=== PATIENT | female | born 1955 | race Caucasian/White ===

== ENCOUNTER → 2017-04-09 | Outpatient (CLI) | payer OTHER ==
[~2017-04-09] MED LIST: ASPI325T6 PO; CLEOCIN HC150 MG/CAP PO; COREG 6.256.25 MG/TA PO; HIGH BLOOD PRESSURE; HUMULIN N 10100 U/ML SQ; HUMULIN R U-500 U/ML SQ; IPRATROPIUM BROM3 M1 IH; K-DUR 10 MEQ T10 MEQ PO; LASIX 20MG TABL20 MG; LASIX 20MG TABL20 MG PO; LASIX 40MG TABL40 MG PO; NORVASC 5MG5 MG/TAB PO; PREDNISONE20 MG PO; VASOTEC20 MG PO
== END ==
LOC: SUN.DIA 08:40
DX: E11.9 Type 2 diabetes mellitus without complications (principal); Z79.4 Long term (current) use of insulin; I51.9 Heart disease, unspecified; E66.9 Obesity, unspecified; Z68.34 Body mass index [BMI] 34.0-34.9, adult; Z71.3 Dietary counseling and surveillance; F17.210 Nicotine dependence, cigarettes, uncomplicated
CPT/HCPCS: G0108

== ENCOUNTER 2017-09-01 20:40 | Inpatient (IN) | payer OTHER ==
[~2017-09-01] VITALS: Ht 160 cm; Wt 90.0 kg
[~2017-09-01 20:40] MED LIST changes: +ASPIRIN 81M81 MG/TA2 PO; +HUMULIN R 10100 U/ML SQ; +NICODERM C21 MG/PATC TD
[2017-09-01 21:12] LABS: BASO % 0.2 % (0.0-2.0); EOS # 0.1 (0.0-0.7); EOS % 2.6 % (0-4.0); GRAN # 3.2 (1.4-6.5); GRAN % 64.6 % (42.2-75.2); HEMATOCRIT 38.7 % (37.0-47.0); HEMOGLOBIN 12.5 g/dl (12.5-16.0); LYMPH # 1.2 (1.2-3.4); MEAN CELL VOLUME 102 fl (80.0-100.0); MEAN CORPUSCULAR HEMOGLOBIN 33 pg (27.0-31.0); MEAN CORPUSCULAR HGB CONC 32 g/dl (33.0-37.0); MEAN PLATELET VOLUME 10.6 fl (7.4-10.4); MONO # 0.4 (0.1-0.6); MONO % 8.4 % (1.7-9.3); PLATELET COUNT 143 K/mm3 (130-400); RED BLOOD COUNT 3.79 M/mm3 (4.10-5.30); REDCELL DISTRIBUTION WIDTH-CV 12.7 % (11.5-14.5)
[2017-09-01 21:28] LABS: ALANINE AMINOTRANSFERASE 74 U/L (9-52); ALBUMIN 3.2 gm/dL (3.5-5.0); ALKALINE PHOSPHATASE 87 U/L (50-136); ANION GAP 6 mmol/L (7-16); AST,SGOT 63 U/L (15-37); BILIRUBIN,TOTAL 0.3 mg/dL (0.0-1.0); BLOOD UREA NITROGEN 23 mg/dL (7-17); CALCIUM 8.6 mg/dL (8.4-10.2); CARBON DIOXIDE 35 mmol/L (22-30); CHLORIDE 101 mmol/L (98-107); CREATININE, serum 0.98 mg/dL (0.52-1.25); GLUCOSE 145 mg/dL (74-106); POTASSIUM 4.4 mmol/L (3.4-5.0); SODIUM 143 mmol/L (137-145); TOTAL PROTEIN 6.1 gm/dL (6.4-8.2)
[2017-09-01 21:40] LABS: TROPONIN-I < 0.012 ng/mL (0.000-0.034)
[2017-09-01 21:41] LABS: ARTERIAL BLD GAS O2 SATURATION 93.2 % (92-100); ARTERIAL BLD GAS TCO2 CT 40.5; ARTERIAL BLOOD GAS BASE EXCESS 7.9 (-2-2); ARTERIAL BLOOD GAS HCO3 37.9 meq/L (22-26); ARTERIAL BLOOD GAS PO2 72.3 mmHg (80-100); ARTERIAL BLOOD GAS pH 7.27 (7.35-7.45)
[2017-09-01 21:42] LABS: ARTERIAL BLOOD GAS PCO2 83.8 mmHg (35-45)
[2017-09-01 22:40] LABS: COLLECTION METHOD CLEAN CATCH
[2017-09-01 22:47] LABS: MUCOUS Present /lpf; PH 5 (5-8); SQUAMOUS EPITHELIAL 0-2 /hpf; URINE APPEARANCE Clear; URINE BACTERIA Rare /hpf; URINE BILIRUBIN Negative (NEGATIVE); URINE BLOOD Negative (NEGATIVE); URINE COLOR Yellow; URINE GLUCOSE Negative (NEGATIVE); URINE KETONE Negative (NEGATIVE); URINE LEUKOCYTE ESTERASE Negative (NEGATIVE); URINE NITRATE Negative (NEGATIVE); URINE PROTEIN(semi-quant) Negative (NEGATIVE); URINE RBC 0-2 /hpf; URINE UROBILINOGEN Negative (NEGATIVE)
[2017-09-01 23:54] VITALS: O2SAT 100
[2017-09-01 23:55] VITALS: O2SAT 96
[2017-09-01 23:56] VITALS: O2SAT 98
[2017-09-01 23:57] VITALS: O2SAT 97
[2017-09-01 23:58] VITALS: O2SAT 100
[2017-09-01 23:59] VITALS: O2SAT 99
[2017-09-02] VITALS (1377 sets, daily range): BP systolic 117–214; BP diastolic 66–102; PULSE 57–86; TEMP 97.3–97.9; O2SAT 78–99
[2017-09-02 02:26] LABS: ARTERIAL BLD GAS O2 SATURATION 94.8 % (92-100); ARTERIAL BLD GAS TCO2 CT 38.6; ARTERIAL BLOOD GAS BASE EXCESS 7.5 (-2-2); ARTERIAL BLOOD GAS HCO3 36.4 meq/L (22-26); ARTERIAL BLOOD GAS PO2 83.2 mmHg (80-100); ARTERIAL BLOOD GAS pH 7.31 (7.35-7.45)
[2017-09-02 02:27] LABS: ARTERIAL BLOOD GAS PCO2 73.2 mmHg (35-45)
[2017-09-02 05:52] LABS: BASO % 0.2 % (0.0-2.0); EOS # 0.1 (0.0-0.7); EOS % 1.1 % (0-4.0); GRAN # 5.5 (1.4-6.5); GRAN % 84.3 % (42.2-75.2); HEMOGLOBIN 13.2 g/dl (12.5-16.0); LYMPH # 0.7 (1.2-3.4); LYMPH % 11.1 % (20.0-51.0); MEAN CELL VOLUME 104 fl (80.0-100.0); MEAN CORPUSCULAR HEMOGLOBIN 33 pg (27.0-31.0); MEAN CORPUSCULAR HGB CONC 32 g/dl (33.0-37.0); MEAN PLATELET VOLUME 10.8 fl (7.4-10.4); MONO # 0.2 (0.1-0.6); PLATELET COUNT 161 K/mm3 (130-400); RED BLOOD COUNT 3.95 M/mm3 (4.10-5.30); REDCELL DISTRIBUTION WIDTH-CV 12.6 % (11.5-14.5)
[2017-09-02 06:05] LABS: ALBUMIN 3.6 gm/dL (3.5-5.0); BILIRUBIN,TOTAL 0.6 mg/dL (0.0-1.0); CALCIUM 8.7 mg/dL (8.4-10.2); CREATININE, serum 0.85 mg/dL (0.52-1.25); POTASSIUM 4.1 mmol/L (3.4-5.0); TOTAL PROTEIN 6.6 gm/dL (6.4-8.2)
[2017-09-02 13:24] LABS: ARTERIAL BLOOD GAS pH 7.35 (7.35-7.45)
[2017-09-02 13:25] LABS: ARTERIAL BLOOD GAS BASE EXCESS 12.7 (-2-2); ARTERIAL BLOOD GAS HCO3 42.3 meq/L (22-26); ARTERIAL BLOOD GAS PCO2 79.2 mmHg (35-45); ARTERIAL BLOOD GAS PO2 76.5 mmHg (80-100)
[2017-09-02 13:26] LABS: ARTERIAL BLD GAS TCO2 CT 44.7
[2017-09-02 13:29] LABS: ARTERIAL BLOOD GAS BASE EXCESS 10.1 (-2-2); ARTERIAL BLOOD GAS HCO3 39.3 meq/L (22-26); ARTERIAL BLOOD GAS PCO2 75.8 mmHg (35-45); ARTERIAL BLOOD GAS PO2 89.7 mmHg (80-100)
[2017-09-02 13:30] LABS: ARTERIAL BLD GAS O2 SATURATION 96.1 % (92-100); ARTERIAL BLOOD GAS pH 7.33 (7.35-7.45)
[2017-09-02 14:17] LABS: ARTERIAL BLOOD GAS BASE EXCESS 11.9 (-2-2); ARTERIAL BLOOD GAS HCO3 40.9 meq/L (22-26); ARTERIAL BLOOD GAS PCO2 75.3 mmHg (35-45); ARTERIAL BLOOD GAS PO2 66.4 mmHg (80-100); ARTERIAL BLOOD GAS pH 7.35 (7.35-7.45)
[2017-09-02 14:18] LABS: ARTERIAL BLD GAS O2 SATURATION 92.6 % (92-100)
[2017-09-03] VITALS (708 sets, daily range): BP systolic 129–158; BP diastolic 47–84; PULSE 58–83; TEMP 97–98.8; O2SAT 82–98
[2017-09-04 04:25] VITALS: BP 170/72; PULSE 71
[2017-09-04 08:04] VITALS: BP 169/72; PULSE 69; TEMP 98.7
[2017-09-04 12:13] VITALS: BP 167/78; PULSE 71; TEMP 98.6
[2017-09-04] MEDS ORDERED: VASOTEC20 MG PO (13:45)
[2017-09-04] MEDS ORDERED: LASIX 20MG TABL20 MG PO (13:45)
[2017-09-04] MEDS ORDERED: HUMULIN N 10100 U/ML SQ (13:45)
[2017-09-04] MEDS ORDERED: COREG 6.256.25 MG/TA PO (13:45)
[2017-09-04] MEDS ORDERED: PREDNISONE20 MG PO (13:45)
[2017-09-04] MEDS ORDERED: NICODERM C21 MG/PATC TD (13:45)
[2017-09-04] MEDS ORDERED: HUMULIN R 10100 U/ML SQ (13:45)
[2017-09-04] MEDS ORDERED: IPRATROPIUM BROM3 M1 IH (13:45)
[2017-09-04] MEDS ORDERED: NOVOLIN R100 U/ML SQ (14:42)
[2017-09-04] MEDS ORDERED: NOVOLIN N100 U/ML SQ (14:42)
== END 2017-09-04 15:37 | disposition home or self-care (01) | DRG 189 ==
LOC: COL.ER 20:40 → ICU 22:10 → MEDICAL 09-03 11:57
PROVIDERS: Emergency Medicine; Internal Medicine Pulmonary Disease
DX: J96.02 Acute respiratory failure with hypercapnia (principal); I50.33 Acute on chronic diastolic (congestive) heart failure; J44.1 Chronic obstructive pulmonary disease with (acute) exacerbation; I16.1 Hypertensive emergency; E11.65 Type 2 diabetes mellitus with hyperglycemia; I11.0 Hypertensive heart disease with heart failure; Z91.14 Patient's other noncompliance with medication regimen; Z79.4 Long term (current) use of insulin; F17.210 Nicotine dependence, cigarettes, uncomplicated
CPT/HCPCS: 99223-AI; 99233-AI; 99239; J1650; J1815; J1940; J2920; J7512

== ENCOUNTER 2017-12-05 04:51 | Inpatient (IN) | payer MEDICAID ==
[~2017-12-05] VITALS: Ht 160 cm; Wt 100.3 kg
[2017-12-05] VITALS (922 sets, daily range): BP systolic 152–240; BP diastolic 70–99; PULSE 55–74; TEMP 97.4–98.4; O2SAT 61–100
[~2017-12-05 04:51] MED LIST changes: +NOVOLIN N100 U/ML SQ; +NOVOLIN R100 U/ML SQ
[2017-12-05 05:16] LABS: BASO % 0.3 % (0.0-2.0); EOS # 0.1 (0.0-0.7); EOS % 2.1 % (0-4.0); GRAN # 4.6 (1.4-6.5); GRAN % 73.2 % (42.2-75.2); HEMATOCRIT 40.8 % (37.0-47.0); HEMOGLOBIN 13.3 g/dl (12.5-16.0); LYMPH # 1.1 (1.2-3.4); LYMPH % 17.5 % (20.0-51.0); MEAN CELL VOLUME 101 fl (80.0-100.0); MEAN CORPUSCULAR HEMOGLOBIN 33 pg (27.0-31.0); MEAN CORPUSCULAR HGB CONC 33 g/dl (33.0-37.0); MEAN PLATELET VOLUME 10.2 fl (7.4-10.4); MONO # 0.4 (0.1-0.6); MONO % 6.1 % (1.7-9.3); PLATELET COUNT 167 K/mm3 (130-400); RED BLOOD COUNT 4.05 M/mm3 (4.10-5.30); REDCELL DISTRIBUTION WIDTH-CV 12.2 % (11.5-14.5)
[2017-12-05 05:17] LABS: INR 0.9 (0.8-3.0); PROTHROMBIN TIME 10.7 SECONDS (9.7-12.8)
[2017-12-05 05:21] LABS: ARTERIAL BLD GAS O2 SATURATION 92.1 % (92-100); ARTERIAL BLD GAS TCO2 CT 38.5; ARTERIAL BLOOD GAS HCO3 36.2 meq/L (22-26); ARTERIAL BLOOD GAS PO2 66.3 mmHg (80-100)
[2017-12-05 05:21] LABS: ALANINE AMINOTRANSFERASE 53 U/L (9-52); ALBUMIN 3.8 gm/dL (3.5-5.0); ALKALINE PHOSPHATASE 75 U/L (50-136); ANION GAP 5 mmol/L (7-16); AST,SGOT 52 U/L (15-37); BILIRUBIN,TOTAL 0.4 mg/dL (0.0-1.0); BLOOD UREA NITROGEN 19 mg/dL (7-17); CALCIUM 9.2 mg/dL (8.4-10.2); CARBON DIOXIDE 38 mmol/L (22-30); CHLORIDE 99 mmol/L (98-107); CREATININE, serum 0.74 mg/dL (0.52-1.25); GLUCOSE 124 mg/dL (74-106); POTASSIUM 4.5 mmol/L (3.4-5.0); SODIUM 141 mmol/L (137-145); TOTAL PROTEIN 6.5 gm/dL (6.4-8.2)
[2017-12-05 05:38] LABS: TROPONIN-I < 0.012 ng/mL (0.000-0.034)
[2017-12-05 06:50] LABS: ARTERIAL BLD GAS O2 SATURATION 93.5 % (92-100); ARTERIAL BLD GAS TCO2 CT 39.7; ARTERIAL BLOOD GAS BASE EXCESS 8.4 (-2-2); ARTERIAL BLOOD GAS HCO3 37.4 meq/L (22-26); ARTERIAL BLOOD GAS PO2 69.9 mmHg (80-100); ARTERIAL BLOOD GAS pH 7.32 (7.35-7.45)
[2017-12-05 06:51] LABS: ARTERIAL BLOOD GAS PCO2 74.1 mmHg (35-45)
[2017-12-05] MEDS ORDERED: LASIX 40MG TABL40 MG PO (08:34)
[2017-12-05 10:36] LABS: COLLECTION METHOD CLEAN CATCH
[2017-12-05 10:51] LABS: PH 7 (5-8); SQUAMOUS EPITHELIAL 0-2 /hpf; URINE APPEARANCE Clear; URINE BACTERIA Rare /hpf; URINE BILIRUBIN Negative (NEGATIVE); URINE BLOOD Negative (NEGATIVE); URINE COLOR Yellow; URINE GLUCOSE Negative (NEGATIVE); URINE KETONE Negative (NEGATIVE); URINE LEUKOCYTE ESTERASE Negative (NEGATIVE); URINE NITRATE Negative (NEGATIVE); URINE PROTEIN(semi-quant) Negative (NEGATIVE); URINE UROBILINOGEN Negative (NEGATIVE)
[2017-12-05 10:53] LABS: URINE WBC None Seen /hpf
[2017-12-05 10:54] LABS: TRICYCLIC ANTIDEPRESS URINE NEGATIVE
[2017-12-05 11:19] LABS: ARTERIAL BLD GAS O2 SATURATION 89.2 % (92-100); ARTERIAL BLD GAS TCO2 CT 43.7; ARTERIAL BLOOD GAS BASE EXCESS 11.5 (-2-2); ARTERIAL BLOOD GAS HCO3 41.2 meq/L (22-26); ARTERIAL BLOOD GAS PO2 58.6 mmHg (80-100); ARTERIAL BLOOD GAS pH 7.32 (7.35-7.45)
[2017-12-05 13:06] LABS: ARTERIAL BLD GAS O2 SATURATION 91.6 % (92-100); ARTERIAL BLD GAS TCO2 CT 44.9; ARTERIAL BLOOD GAS BASE EXCESS 13.1 (-2-2); ARTERIAL BLOOD GAS HCO3 42.5 meq/L (22-26); ARTERIAL BLOOD GAS PCO2 78.4 mmHg (35-45); ARTERIAL BLOOD GAS PO2 62.9 mmHg (80-100); ARTERIAL BLOOD GAS pH 7.35 (7.35-7.45)
[2017-12-05 19:50] LABS: ARTERIAL BLD GAS O2 SATURATION 95.9 % (92-100); ARTERIAL BLD GAS TCO2 CT 42.5; ARTERIAL BLOOD GAS BASE EXCESS 11.2 (-2-2); ARTERIAL BLOOD GAS HCO3 40.2 meq/L (22-26); ARTERIAL BLOOD GAS PO2 84.1 mmHg (80-100); ARTERIAL BLOOD GAS pH 7.35 (7.35-7.45)
[2017-12-05 19:51] LABS: ARTERIAL BLOOD GAS PCO2 74.5 mmHg (35-45)
[2017-12-06] VITALS (963 sets, daily range): BP systolic 122–224; BP diastolic 69–105; PULSE 62–84; TEMP 97.6–98.7; O2SAT 73–100
[2017-12-06 05:45] LABS: ARTERIAL BLD GAS O2 SATURATION 94.6 % (92-100); ARTERIAL BLD GAS TCO2 CT 42.3; ARTERIAL BLOOD GAS HCO3 40.2 meq/L (22-26); ARTERIAL BLOOD GAS pH 7.39 (7.35-7.45)
[2017-12-06 05:46] LABS: ARTERIAL BLOOD GAS PCO2 68.7 mmHg (35-45)
[2017-12-06 06:14] LABS: BASO % 0.1 % (0.0-2.0); GRAN # 8.8 (1.4-6.5); GRAN % 89.1 % (42.2-75.2); HEMATOCRIT 41.9 % (37.0-47.0); HEMOGLOBIN 13.7 g/dl (12.5-16.0); LYMPH # 0.8 (1.2-3.4); LYMPH % 8.2 % (20.0-51.0); MEAN CELL VOLUME 99 fl (80.0-100.0); MEAN CORPUSCULAR HEMOGLOBIN 32 pg (27.0-31.0); MEAN CORPUSCULAR HGB CONC 33 g/dl (33.0-37.0); MEAN PLATELET VOLUME 11.1 fl (7.4-10.4); MONO # 0.2 (0.1-0.6); PLATELET COUNT 183 K/mm3 (130-400); RED BLOOD COUNT 4.23 M/mm3 (4.10-5.30); REDCELL DISTRIBUTION WIDTH-CV 12.2 % (11.5-14.5)
[2017-12-06 06:22] LABS: CALCIUM 9.3 mg/dL (8.4-10.2); CREATININE, serum 0.83 mg/dL (0.52-1.25); POTASSIUM 4.5 mmol/L (3.4-5.0)
[2017-12-07 00:55] VITALS: BP 154/84; PULSE 58
[2017-12-07 04:30] VITALS: BP 164/96; PULSE 84
[2017-12-07 05:51] LABS: ARTERIAL BLD GAS O2 SATURATION 96.8 % (92-100); ARTERIAL BLOOD GAS BASE EXCESS 12.7 (-2-2); ARTERIAL BLOOD GAS HCO3 39.2 meq/L (22-26); ARTERIAL BLOOD GAS PCO2 57.9 mmHg (35-45); ARTERIAL BLOOD GAS PO2 93.2 mmHg (80-100); ARTERIAL BLOOD GAS pH 7.45 (7.35-7.45)
[2017-12-07 07:36] LABS: HEMATOCRIT 39.7 % (37.0-47.0); HEMOGLOBIN 13.5 g/dl (12.5-16.0); MEAN CELL VOLUME 96 fl (80.0-100.0); MEAN CORPUSCULAR HEMOGLOBIN 33 pg (27.0-31.0); MEAN CORPUSCULAR HGB CONC 34 g/dl (33.0-37.0); MEAN PLATELET VOLUME 10.7 fl (7.4-10.4); PLATELET COUNT 204 K/mm3 (130-400); RED BLOOD COUNT 4.14 M/mm3 (4.10-5.30); REDCELL DISTRIBUTION WIDTH-CV 12.2 % (11.5-14.5)
[2017-12-07 07:44] VITALS: BP 215/85; PULSE 62; TEMP 97.8
[2017-12-07 07:47] LABS: CALCIUM 9.2 mg/dL (8.4-10.2); CREATININE, serum 0.68 mg/dL (0.52-1.25); POTASSIUM 3.8 mmol/L (3.4-5.0)
[2017-12-07 08:06] LABS: BAND 5 % (0-10); LYMPHOCYTE 6 % (20.0-51.0); NEUTROPHILS 89 % (42.0-75.2)
[2017-12-07 08:07] LABS: PLATELET ESTIMATE NORMAL (NORMAL)
[2017-12-07 08:08] LABS: STOMATOCYTE 1+
[2017-12-07] MEDS ORDERED: NORVASC 5MG5 MG/TAB PO ×2 (10:42)
[2017-12-07] MEDS ORDERED: PULMICORT R1 MG/2 ML IH (10:48)
[2017-12-07] MEDS ORDERED: PREDNISONE10 MG PO (10:52)
[2017-12-07] MEDS ORDERED: PROAIR HFA0.09 MG/AC IH (10:56)
[2017-12-07 11:18] VITALS: BP 214/87; PULSE 59; TEMP 98.1
[2017-12-07] MEDS ORDERED: NORVASC 10MG10 MG PO (14:02)
[2017-12-07 15:42] VITALS: BP 213/83; PULSE 70; TEMP 97.8
[2017-12-07 20:42] VITALS: BP 161/54; PULSE 63
[2017-12-08 00:05] VITALS: BP 161/58; PULSE 51
[2017-12-08 04:13] VITALS: BP 195/89; PULSE 57
[2017-12-08 05:52] VITALS: BP 171/60
[2017-12-08 06:54] LABS: BASO % 0.1 % (0.0-2.0); EOS % 0.1 % (0-4.0); GRAN # 7.5 (1.4-6.5); GRAN % 79.2 % (42.2-75.2); HEMATOCRIT 41.1 % (37.0-47.0); HEMOGLOBIN 13.6 g/dl (12.5-16.0); LYMPH # 1.2 (1.2-3.4); LYMPH % 12.8 % (20.0-51.0); MEAN CELL VOLUME 97 fl (80.0-100.0); MEAN CORPUSCULAR HEMOGLOBIN 32 pg (27.0-31.0); MEAN CORPUSCULAR HGB CONC 33 g/dl (33.0-37.0); MEAN PLATELET VOLUME 10.8 fl (7.4-10.4); MONO # 0.7 (0.1-0.6); MONO % 7.1 % (1.7-9.3); PLATELET COUNT 173 K/mm3 (130-400); RED BLOOD COUNT 4.23 M/mm3 (4.10-5.30); REDCELL DISTRIBUTION WIDTH-CV 12.3 % (11.5-14.5)
[2017-12-08 07:09] LABS: CALCIUM 8.7 mg/dL (8.4-10.2); CREATININE, serum 0.71 mg/dL (0.52-1.25); POTASSIUM 3.3 mmol/L (3.4-5.0)
[2017-12-08 07:50] VITALS: BP 127/72; PULSE 71; TEMP 97.4
[2017-12-08 08:10] VITALS: BP 159/64; PULSE 62; TEMP 98.8
[2017-12-08] MEDS ORDERED: APRESOLINE50 MG PO (09:11)
[2017-12-08 12:51] VITALS: BP 171/71; PULSE 63; TEMP 99.2
== END 2017-12-08 16:04 | disposition home or self-care (01) | DRG 189 ==
LOC: COL.ER 04:51 → MEDICAL 06:25 → ICU 06:25 → MEDICAL 12-06 16:20
PROVIDERS: Emergency Medicine; Internal Medicine; Internal Medicine Pulmonary Disease; Physician Assistant
DX: J96.22 Acute and chronic respiratory failure with hypercapnia (principal); I50.32 Chronic diastolic (congestive) heart failure; E66.2 Morbid (severe) obesity with alveolar hypoventilation; J44.1 Chronic obstructive pulmonary disease with (acute) exacerbation; J96.21 Acute and chronic respiratory failure with hypoxia; I11.0 Hypertensive heart disease with heart failure; E11.9 Type 2 diabetes mellitus without complications; F17.210 Nicotine dependence, cigarettes, uncomplicated; F12.90 Cannabis use, unspecified, uncomplicated; Z68.38 Body mass index [BMI] 38.0-38.9, adult
CPT/HCPCS: 99223-AI; 99233-AI; 99239; J1650; J1815; J1940; J2405; J2930; J7512

== ENCOUNTER 2018-02-22 08:29 | Emergency (ER) | payer MEDICAID ==
[~2018-02-22] VITALS: Ht 160 cm; Wt 101.4 kg
[~2018-02-22 08:29] MED LIST changes: +APRESOLINE50 MG PO; +NORVASC 10MG10 MG PO; +PREDNISONE10 MG PO; +PROAIR HFA0.09 MG/AC IH; +PULMICORT R1 MG/2 ML IH
[2018-02-22 08:32] VITALS: TEMP 99
[2018-02-22] MEDS ORDERED: NORCO 325 MG-51 TAB PO (09:15)
[2018-02-22] MEDS ORDERED: QUALITY CHOI500 U/GM TOP (09:24)
[2018-02-22 09:54] VITALS: BP 135/84; PULSE 69
== END 2018-02-22 09:54 | disposition home or self-care (01) ==
LOC: COL.ER 08:29
DX: T20.29XA Burn of second degree of multiple sites of head, face, and neck, initial encounter (principal); E11.9 Type 2 diabetes mellitus without complications; I10 Essential (primary) hypertension; J44.9 Chronic obstructive pulmonary disease, unspecified; Z88.0 Allergy status to penicillin; Z88.2 Allergy status to sulfonamides; Z79.82 Long term (current) use of aspirin; Z79.4 Long term (current) use of insulin; F17.210 Nicotine dependence, cigarettes, uncomplicated; X08.8XXA Exposure to other specified smoke, fire and flames, initial encounter

== ENCOUNTER 2018-06-13 07:53 | Emergency (ER) | payer MEDICAID ==
[~2018-06-13] VITALS: Ht 160 cm; Wt 104.5 kg
[~2018-06-13 07:53] MED LIST changes: +NORCO 325 MG-51 TAB PO; +QUALITY CHOI500 U/GM TOP
[2018-06-13 08:02] VITALS: TEMP 98.8
[2018-06-13] MEDS ORDERED: OMNICEF 300MG300 MG PO (08:17)
[2018-06-13] MEDS ORDERED: CLEOCIN HCL300 MG PO (08:17)
[2018-06-13 09:01] LABS: CALCIUM 9.4 mg/dL (8.4-10.2); CREATININE, serum 0.9 mg/dL (0.52-1.25); POTASSIUM 4.2 mmol/L (3.4-5.0)
[2018-06-13 10:05] VITALS: BP 128/80; PULSE 60
== END 2018-06-13 10:06 | disposition home or self-care (01) ==
LOC: COL.ER 07:53
PROVIDERS: Emergency Medicine
DX: L03.213 Periorbital cellulitis (principal); J44.9 Chronic obstructive pulmonary disease, unspecified; Z79.4 Long term (current) use of insulin; Z79.82 Long term (current) use of aspirin
CPT/HCPCS: A4216; J0696; Q9967

== ENCOUNTER → 2018-06-28 | Outpatient (CLI) | payer MEDICAID ==
[~2018-06-28] MED LIST changes: +CLEOCIN HCL300 MG PO; +OMNICEF 300MG300 MG PO
== END ==
LOC: COL.RAD 08:01
DX: N18.9 Chronic kidney disease, unspecified (principal)

== ENCOUNTER → 2018-07-30 | Outpatient (CLI) | payer MEDICAID ==
[~2018-07-30] MED LIST changes: +ZITHROMAX 250M250 MG PO
[2018-07-30 11:02] LABS: HEMATOCRIT 37.5 % (37.0-47.0); HEMOGLOBIN 12.2 g/dl (12.5-16.0); MEAN CELL VOLUME 100 fl (80.0-100.0); MEAN CORPUSCULAR HEMOGLOBIN 32 pg (27.0-31.0); MEAN CORPUSCULAR HGB CONC 33 g/dl (33.0-37.0); MEAN PLATELET VOLUME 10.7 fl (7.4-10.4); PLATELET COUNT 171 K/mm3 (130-400); RED BLOOD COUNT 3.76 M/mm3 (4.10-5.30); REDCELL DISTRIBUTION WIDTH-CV 12.3 % (11.5-14.5)
[2018-07-30 11:15] LABS: CALCIUM 9.1 mg/dL (8.4-10.2); CREATININE, serum 0.92 mg/dL (0.52-1.25); POTASSIUM 4.1 mmol/L (3.4-5.0)
[2018-08-03 13:41] LABS: COLLECTION METHOD CLEAN CATCH
[2018-08-03 14:20] LABS: BUDDING YEAST Present /hpf; MUCOUS Present /lpf; PH 7 (5-8); SQUAMOUS EPITHELIAL 20-50 /hpf; URINE APPEARANCE Cloudy; URINE BACTERIA Rare /hpf; URINE BILIRUBIN Negative (NEGATIVE); URINE BLOOD Negative (NEGATIVE); URINE COLOR Yellow; URINE GLUCOSE Negative (NEGATIVE); URINE KETONE Negative (NEGATIVE); URINE LEUKOCYTE ESTERASE 2+ (NEGATIVE); URINE NITRATE Negative (NEGATIVE); URINE PROTEIN(semi-quant) Negative (NEGATIVE); URINE RBC 0-2 /hpf; URINE UROBILINOGEN >=4.0 mg/dL (NEGATIVE); URINE WBC 20-50 /hpf
[2018-08-03 23:59] LABS: URINE MICROALBUMIN 1.1 mg/dL (0.0-1.7)
== END ==
LOC: COL.LAB 10:37
PROVIDERS: Internal Medicine Cardiovascular Disease
DX: I12.9 Hypertensive chronic kidney disease with stage 1 through stage 4 chronic kidney disease, or unspecified chronic kidney disease (principal); N18.9 Chronic kidney disease, unspecified

== ENCOUNTER 2018-08-05 00:12 | Emergency (ER) | payer MEDICAID ==
[~2018-08-05] VITALS: Ht 160 cm; Wt 90.9 kg
[~2018-08-05 00:12] MED LIST changes: -ZITHROMAX 250M250 MG PO
[2018-08-05 00:21] VITALS: TEMP 98.9
[2018-08-05 01:55] LABS: HEMATOCRIT 39.5 % (37.0-47.0); HEMOGLOBIN 12.7 g/dl (12.5-16.0); MEAN CELL VOLUME 101 fl (80.0-100.0); MEAN CORPUSCULAR HEMOGLOBIN 33 pg (27.0-31.0); MEAN CORPUSCULAR HGB CONC 32 g/dl (33.0-37.0); MEAN PLATELET VOLUME 10.7 fl (7.4-10.4); PLATELET COUNT 99 K/mm3 (130-400); REDCELL DISTRIBUTION WIDTH-CV 12.2 % (11.5-14.5)
[2018-08-05 02:20] LABS: ALBUMIN 3.6 gm/dL (3.5-5.0); BILIRUBIN,TOTAL 0.7 mg/dL (0.0-1.0); CALCIUM 9.2 mg/dL (8.4-10.2); CREATININE, serum 0.97 (0.52-1.25); POTASSIUM 4.5 mmol/L (3.4-5.0); TOTAL PROTEIN 6.4 gm/dL (6.4-8.2)
[2018-08-05 02:31] LABS: TROPONIN-I 0.024 ng/mL (0.000-0.035)
[2018-08-05 02:51] LABS: BAND 2 % (0-10); HYPOCHROMIA 1+; LYMPHOCYTE 6 % (20.0-51.0); NEUTROPHILS 91 % (42.0-75.2); PLATELET ESTIMATE DECREASED (NORMAL)
[2018-08-05] MEDS ORDERED: ZITHROMAX 250M250 MG PO (05:12)
[2018-08-05] MEDS ORDERED: PREDNISONE20 MG PO (05:12)
[2018-08-05 05:19] VITALS: BP 123/69; PULSE 86
== END 2018-08-05 05:19 | disposition home or self-care (01) ==
LOC: COL.ER 00:12
PROVIDERS: Emergency Medicine
DX: J44.1 Chronic obstructive pulmonary disease with (acute) exacerbation (principal); I50.9 Heart failure, unspecified; E11.9 Type 2 diabetes mellitus without complications; I10 Essential (primary) hypertension; J44.9 Chronic obstructive pulmonary disease, unspecified; F17.210 Nicotine dependence, cigarettes, uncomplicated; Z79.4 Long term (current) use of insulin; Z88.0 Allergy status to penicillin
CPT/HCPCS: J7512

== ENCOUNTER 2018-08-09 14:40 | Inpatient (IN) | payer MEDICAID ==
[~2018-08-09] VITALS: Ht 160 cm; Wt 107.5 kg
[~2018-08-09 14:40] MED LIST changes: +ZITHROMAX 250M250 MG PO
[2018-08-09 15:19] LABS: BASO % 0.2 % (0.0-2.0); EOS % 0.2 % (0-4.0); GRAN # 2.4 (1.4-6.5); GRAN % 53.6 % (42.2-75.2); HEMOGLOBIN 11.7 g/dl (12.5-16.0); LYMPH # 1.6 (1.2-3.4); LYMPH % 35.1 % (20.0-51.0); MEAN CELL VOLUME 101 fl (80.0-100.0); MEAN CORPUSCULAR HEMOGLOBIN 32 pg (27.0-31.0); MEAN CORPUSCULAR HGB CONC 32 g/dl (33.0-37.0); MEAN PLATELET VOLUME 10.6 fl (7.4-10.4); MONO # 0.5 (0.1-0.6); MONO % 10.7 % (1.7-9.3); PLATELET COUNT 149 K/mm3 (130-400); RED BLOOD COUNT 3.66 M/mm3 (4.10-5.30); REDCELL DISTRIBUTION WIDTH-CV 11.9 % (11.5-14.5)
[2018-08-09 15:24] LABS: HEMATOCRIT 36.9 % (37.0-47.0)
[2018-08-09 15:35] LABS: ALBUMIN 3.1 gm/dL (3.5-5.0); BILIRUBIN,TOTAL 0.3 mg/dL (0.0-1.0); C-REACTIVE PROTEIN 1.2 mg/dL (0.0-0.9); CALCIUM 8.2 mg/dL (8.4-10.2); CREATININE, serum 0.92 (0.52-1.25); TOTAL PROTEIN 5.6 gm/dL (6.4-8.2)
[2018-08-09 17:29] LABS: COLLECTION METHOD CLEAN CATCH
[2018-08-09 17:34] LABS: PH 5 (5-8); SQUAMOUS EPITHELIAL 0-2 /hpf; URINE APPEARANCE Clear; URINE BACTERIA Rare /hpf; URINE BILIRUBIN Negative (NEGATIVE); URINE BLOOD Negative (NEGATIVE); URINE COLOR Yellow; URINE GLUCOSE Negative (NEGATIVE); URINE KETONE Negative (NEGATIVE); URINE LEUKOCYTE ESTERASE Negative (NEGATIVE); URINE NITRATE Negative (NEGATIVE); URINE PROTEIN(semi-quant) Negative (NEGATIVE); URINE RBC None Seen /hpf; URINE UROBILINOGEN Negative (NEGATIVE)
--- NOTE | 2018-08-09 19:50 | NUR ---
pt arrived on unit, pt oriented to room and staff. pt on 4L via NC. vitals stable. reports no pain at this time. SCD on. IV flushes well, no swelling , redness. admission assessment complete at 0000. no needs at this time. call light in reach.
[2018-08-09 20:17] VITALS: BP 126/55; PULSE 57; TEMP 97.7
--- NOTE | 2018-08-09 20:30 | NUR ---
pt does not know home medications. ED nurse went through medications Gely coffman APRN accepted list.
[2018-08-09 21:13] VITALS: BP 126/55; PULSE 57; TEMP 97.7
[2018-08-10] VITALS (7 sets, daily range): BP systolic 107–126; BP diastolic 43–63; PULSE 55–72; TEMP 97.7–98.8
--- NOTE | 2018-08-10 06:10 | NUR ---
pt had an uneventful night. slept most of the night. refused BIPAP. SCD on. PT on 4L via NC throughout night. vitals stable. no pain. no SOA. no needs at this time. call light inreach
[2018-08-10 06:49] LABS: HEMOGLOBIN 11.2 g/dl (12.5-16.0); MEAN CELL VOLUME 102 fl (80.0-100.0); MEAN CORPUSCULAR HEMOGLOBIN 31 pg (27.0-31.0); MEAN CORPUSCULAR HGB CONC 31 g/dl (33.0-37.0); MEAN PLATELET VOLUME 10.8 fl (7.4-10.4); PLATELET COUNT 135 K/mm3 (130-400); RED BLOOD COUNT 3.57 M/mm3 (4.10-5.30); REDCELL DISTRIBUTION WIDTH-CV 11.9 % (11.5-14.5)
--- NOTE | 2018-08-10 06:51 | NUR ---
report given to ERICK Marte. pt sleeping at this time.
[2018-08-10 06:53] LABS: HEMATOCRIT 36.5 % (37.0-47.0)
--- NOTE | 2018-08-10 07:14 | NUR ---
SPO2 85% ASLEEP. INCREASED TO 5 LPM NC 90%
[2018-08-10 07:39] LABS: BLOOD UREA NITROGEN 20 mg/dL (7-17); CALCIUM 7.8 mg/dL (8.4-10.2); CHLORIDE 92 mmol/L (98-107); CREATININE, serum 0.92 (0.52-1.25); GLUCOSE 86 mg/dL (74-106); POTASSIUM 3.8 mmol/L (3.4-5.0); SODIUM 138 mmol/L (137-145)
--- NOTE | 2018-08-10 07:45 | NUR ---
Resting quietly in bed at this time. Student, MACHINE BOBBIN WINDER, Olivia assisting with morning medications and cares. The call light is in place.
[2018-08-10 08:12] LABS: ANION GAP 4 mmol/L (7-16); CARBON DIOXIDE 42 mmol/L (22-30); TROPONIN-I < 0.012 ng/mL (0.000-0.035)
--- NOTE | 2018-08-10 08:30 | NUR ---
pt assessment complete.O2 NC @ 5L.SAT92,insp/exp wheezes noted to all peripheral schwartz.No SOB on rest.no c/o pain. telemetry on. INT @right hand Intact no redness noted.
[2018-08-10 08:38] LABS: BAND 9 % (0-10); NEUTROPHILS 38 % (42.0-75.2)
[2018-08-10 08:41] LABS: LYMPHOCYTE 43 % (20.0-51.0); PLATELET ESTIMATE NORMAL (NORMAL)
[2018-08-10 10:49] LABS: ARTERIAL BLD GAS O2 SATURATION 88.4 % (92-100); ARTERIAL BLD GAS TCO2 CT 45.2; ARTERIAL BLOOD GAS HCO3 42.8 meq/L (22-26); ARTERIAL BLOOD GAS PO2 58.7 mmHg (80-100); ARTERIAL BLOOD GAS pH 7.35 (7.35-7.45)
[2018-08-10 10:50] LABS: ARTERIAL BLOOD GAS PCO2 78.5 mmHg (35-45)
--- NOTE | 2018-08-10 11:40 | NUR ---
pt semi-fowlers position. pt on Bipap. telemetry on. int right hand intact and no redness. denies any c/o pain
--- NOTE | 2018-08-10 15:12 | NUR ---
SW attended clinical rounds to discuss discharge planning. Patient lives at home with her . Patient's PCP is Aditi Waller and she obtains prescriptions from [facility]. Patient uses oxygen at home but no other DME is reported and she does not use any home health services. PT and OT will meet with patient. SW will follow up with patient after PT/OT makes discharge recommendations.
--- NOTE | 2018-08-10 17:07 | NUR ---
Bipap in place at this time. Off only to eat this afternoon. Currently, resting in the bed at this time. The call light is in place. Large BM this afternoon. First half of lexiscan completed.
--- NOTE | 2018-08-10 20:44 | NUR ---
PT RESTING IN BED A+OX4. reports no SOA no pain. pt on 5L via oxymask. pt just finished eating, will place BIPAP back on at this time. call light in reach. shift assessment complete. pt has no needs
[2018-08-11] VITALS (11 sets, daily range): BP systolic 114–160; BP diastolic 49–68; PULSE 62–85; TEMP 97.6–98.2
--- NOTE | 2018-08-11 01:38 | NUR ---
pt removed O2- this nurse came into room with O2 sat at 63%. pt reports no symtoms, A+Ox4. this nurse placed pt on 10-12L via oxymask. pt O2 sat increased >92%. pt now on 4L via oxymask sat at 94%. placed pt on continuous pulse/oximetry machine on- alarm settings set to alarm if O2 sat <89, >99. RT notified. pt has no needs at this time. call light in reach
[2018-08-11 05:03] LABS: ARTERIAL BLD GAS TCO2 CT 43.3; ARTERIAL BLOOD GAS BASE EXCESS 12.9 (-2-2); ARTERIAL BLOOD GAS HCO3 41.1 meq/L (22-26); ARTERIAL BLOOD GAS PO2 67.7 mmHg (80-100); ARTERIAL BLOOD GAS pH 7.37 (7.35-7.45)
[2018-08-11 05:04] LABS: ARTERIAL BLOOD GAS PCO2 72.7 mmHg (35-45)
--- NOTE | 2018-08-11 05:22 | NUR ---
pt had an uneventful night. reported no pain. no soa. pt was on 4-7L throughout night. pt currently on 4.5L via oxymask. vitals stable. O2 sat drops to the 60-70% when O2 is removed by pt. Continuous pulse ox on pt, with alarm set for <89%, >99%. no needs at this time. call light in reach.
--- NOTE | 2018-08-11 05:58 | NUR ---
pt refused bipap and SCD throughout night.
[2018-08-11 06:20] LABS: HEMOGLOBIN 11.6 g/dl (12.5-16.0); MEAN CELL VOLUME 98 fl (80.0-100.0); MEAN CORPUSCULAR HEMOGLOBIN 32 pg (27.0-31.0); MEAN CORPUSCULAR HGB CONC 32 g/dl (33.0-37.0); MEAN PLATELET VOLUME 10.8 fl (7.4-10.4); PLATELET COUNT 136 K/mm3 (130-400); RED BLOOD COUNT 3.66 M/mm3 (4.10-5.30); REDCELL DISTRIBUTION WIDTH-CV 11.8 % (11.5-14.5)
[2018-08-11 06:38] LABS: CALCIUM 8.5 mg/dL (8.4-10.2); CREATININE, serum 0.78 (0.52-1.25); POTASSIUM 4.2 mmol/L (3.4-5.0)
--- NOTE | 2018-08-11 06:43 | NUR ---
report given to ERICK Hickman. pt reported no needs at this time
--- NOTE | 2018-08-11 07:30 | NUR ---
Spoke with patient regarding the need to wear bi-pap. Patient understands but does not want to wear bi-pap. She does have 02 on at 5L/NC. Patient c/o'ing of wanting to eat but awaiting cecelia-scan before that can be done. Patient has student nurse this AM..
[2018-08-11 08:05] LABS: LYMPHOCYTE 19 % (20.0-51.0); NEUTROPHILS 74 % (42.0-75.2); PLATELET ESTIMATE DECREASED (NORMAL)
--- NOTE | 2018-08-11 09:00 | NUR ---
Reviewed student nurse assessment. In agreement with the exception of lung sounds. Patient is alert and oriented x 3. She denies pain but is c/o'ing of being thirsty and hungry. Explained to patient the need to wait til after testing is done today and then she will be able to have lunch/breakfast. Skin w/d. Color pale pink. Lungs coarse and diminshed throughout all schwartz with very little movement of air. Patient has dry cough. Resp slightly labored. Patient is currently wearing simple mask with 02 at 5L/NC. HR strong/regular. Abd rounded soft with bowel sounds x 4 quads. PPP. No pedal edema noted. called and update had been given.
--- NOTE | 2018-08-11 09:30 | NUR ---
Patient left the floor at this time for Alaina-scan
--- NOTE | 2018-08-11 11:15 | NUR ---
Patient has returned from Alaina scan. AM medications given. Dr. Krause here and stated patient may eat and drink. But at this time Dr. Silverman wants here to remain on the bi-pap for 2 hours and have ABG's drawn at 1400 then proceed from there. Patient upsets but is understaning. Will continue to monitor her compliance with Bi-Pap
--- NOTE | 2018-08-11 12:30 | NUR ---
Cecelia with AIV here to insert PICC into right upper arm. Patient tolerated procedure well. PICC may be used at this time. Patient is wearing Bi-Pap with much needed encouragement. Explained that she would be able to eat after next set of ABG's but she has to remain on Bi-Pap for 2 hours. She verbalizes understanding but is very hungry she says.
[2018-08-11 14:18] LABS: ARTERIAL BLD GAS O2 SATURATION 94.6 % (92-100); ARTERIAL BLD GAS TCO2 CT 41.5; ARTERIAL BLOOD GAS BASE EXCESS 13.5 (-2-2); ARTERIAL BLOOD GAS HCO3 39.7 meq/L (22-26); ARTERIAL BLOOD GAS PCO2 57.1 mmHg (35-45); ARTERIAL BLOOD GAS PO2 73.1 mmHg (80-100); ARTERIAL BLOOD GAS pH 7.46 (7.35-7.45)
--- NOTE | 2018-08-11 15:08 | NUR ---
Called ABG results to Dr. Israel. Dr. Israel states at this time she must wear her Bi-pap at night; 02 during the day and there was no need for transfer to ICU. Patient may have an ADA/Heart Healthy diet. Patient and made aware of the results and new orders.
--- NOTE | 2018-08-11 18:49 | NUR ---
Patient has remained on her 02 throughout the afternoon. 5L/Mask with 02 sats 90%. Have encourarged and educated patient to leave 02 on at all times. Caught patient up to bathroom without 02 even after educating and noted when patient back to bed 02 sats 68%. Again gave patient reminder of the need to wear 02
--- NOTE | 2018-08-11 21:41 | NUR ---
PT RESTING IN BED A+OX4. REPORTS NO PAIN. NO SOA. BIPAP ON. PICC FLUSHES WELL, BLOOD RETURN NOTED. NO NEEDS AT THIS MOMENT. SHIFT ASSESSMENT COMPLETE. CALL LIGHT IN REACH
[2018-08-12 03:26] VITALS: BP 153/72; PULSE 55; TEMP 97.2
[2018-08-12 05:52] LABS: ARTERIAL BLD GAS O2 SATURATION 94.1 % (92-100); ARTERIAL BLD GAS TCO2 CT 35.9; ARTERIAL BLOOD GAS BASE EXCESS 8.3 (-2-2); ARTERIAL BLOOD GAS HCO3 34.3 meq/L (22-26); ARTERIAL BLOOD GAS PCO2 53.2 mmHg (35-45); ARTERIAL BLOOD GAS PO2 74.5 mmHg (80-100); ARTERIAL BLOOD GAS pH 7.43 (7.35-7.45)
--- NOTE | 2018-08-12 06:33 | NUR ---
pt had an uneventful night. pt wore BIPAP throught night. no c/o soa or pain. PICC flushes well, blood return noted. tele on. no needs at this time. alseep in bed. call light in reach
[2018-08-12 07:04] VITALS: BP 174/62; PULSE 69; TEMP 97.7
--- NOTE | 2018-08-12 07:35 | NUR ---
report given to ERICK Marte. no needs at this time. call light in reach
--- NOTE | 2018-08-12 08:00 | NUR ---
Initial assessment completed with patient at this time. No pain or needs reported. The call light is in place.
[2018-08-12 09:13] LABS: BASO % 0.1 % (0.0-2.0); GRAN # 6.6 (1.4-6.5); GRAN % 86.3 % (42.2-75.2); HEMATOCRIT 38.4 % (37.0-47.0); HEMOGLOBIN 12.5 g/dl (12.5-16.0); LYMPH # 0.9 (1.2-3.4); LYMPH % 11.4 % (20.0-51.0); MEAN CELL VOLUME 98 fl (80.0-100.0); MEAN CORPUSCULAR HEMOGLOBIN 32 pg (27.0-31.0); MEAN CORPUSCULAR HGB CONC 33 g/dl (33.0-37.0); MEAN PLATELET VOLUME 10.7 fl (7.4-10.4); MONO # 0.1 (0.1-0.6); MONO % 1.3 % (1.7-9.3); PLATELET COUNT 181 K/mm3 (130-400); RED BLOOD COUNT 3.92 M/mm3 (4.10-5.30); REDCELL DISTRIBUTION WIDTH-CV 11.8 % (11.5-14.5)
[2018-08-12 09:18] LABS: CALCIUM 9.1 mg/dL (8.4-10.2); CREATININE, serum 0.86 (0.52-1.25)
--- NOTE | 2018-08-12 09:36 | NUR ---
Initial visit; Patient thanked Supervisor [employer] for looking in on her and offering God's blessings.
--- NOTE | 2018-08-12 11:19 | NUR ---
DAVIDE informed that Dr Israel is recommending patient might need a Trilogy. [facility] has supplied patient with a Bipap in the past because insurance denied a Trilogy but insurance later denied the bipap as well. DAVIDE contacted [facility] about this. They report, they can send patient's information to the clinical surpervisor in [place] to see if insurance would approve this time. DAVIDE met with patient and she is agreeable to this plan. Patient signed DME choice form for [facility]. DAVIDE will fax paperwork.
[2018-08-12 11:50] VITALS: BP 152/61; PULSE 81; TEMP 98
[2018-08-12 15:24] VITALS: BP 143/51; PULSE 82; TEMP 98.4
--- NOTE | 2018-08-12 19:01 | NUR ---
No change throughout the shift. The patient still needs reminding to wear her BIPAP and or mask when resting. Report given to ERICK Berrios to resume care.
--- NOTE | 2018-08-12 21:30 | NUR ---
Completed assessment and medication administration; PT tolerated all cares well; PT denied pain and discomfort at time of assessment; PT A&Ox4, BS active x4, voiding without pain, LCTA with bilateral bases diminished, AMB SBA without assistive devices; No further assessed or reported concerns at time of exit; BiPAP replaced at completion of cares; PT refused to have appropriate adjustment fitting for BiPAP mask by RT and nursing staff; PT able to return to comfortable position in bed with call light placed within reach and BiPAP on; Will continues to monitor. CDA
[2018-08-12 21:52] VITALS: BP 137/57; PULSE 70; TEMP 98.3
--- NOTE | 2018-08-12 23:40 | NUR ---
PT WEARING BIPAP HOWEVER, WILL NOT LET MASK BE TIGHTENED TO CREATE A BETTER SEAL AND LESS OF A LEAK, MACHINE KEEPS ALARMING DUE TO A HIGH LEAK BEING DETECTED. WILL CONTINUE TO MONITOR AND ASSESS
[2018-08-13] VITALS: BP 137/78; PULSE 57
--- NOTE | 2018-08-13 04:20 | NUR ---
PT resting well in bed with BiPAP in place; BiPAP ill fitting with potential mask leakage, although PT refuses to comply with refitting from RT and nursing; No further needs or concerns assessed or verbalized at time of exit; PT able to return to a comfortable position in bed with call light within reach; Will continue to monitor. CDA
[2018-08-13 04:55] VITALS: BP 130/52; PULSE 20
[2018-08-13 04:56] VITALS: TEMP 98.3
[2018-08-13 05:49] LABS: BASO % 0.1 % (0.0-2.0); GRAN # 9.5 (1.4-6.5); GRAN % 86.2 % (42.2-75.2); HEMOGLOBIN 11.8 g/dl (12.5-16.0); LYMPH # 0.9 (1.2-3.4); LYMPH % 8.5 % (20.0-51.0); MEAN CELL VOLUME 98 fl (80.0-100.0); MEAN CORPUSCULAR HEMOGLOBIN 32 pg (27.0-31.0); MEAN CORPUSCULAR HGB CONC 33 g/dl (33.0-37.0); MEAN PLATELET VOLUME 10.9 fl (7.4-10.4); MONO # 0.5 (0.1-0.6); MONO % 4.4 % (1.7-9.3); PLATELET COUNT 174 K/mm3 (130-400); RED BLOOD COUNT 3.66 M/mm3 (4.10-5.30)
[2018-08-13 06:00] LABS: ARTERIAL BLOOD GAS BASE EXCESS 7.3 (-2-2); ARTERIAL BLOOD GAS HCO3 32.6 meq/L (22-26); ARTERIAL BLOOD GAS PCO2 47.8 mmHg (35-45); ARTERIAL BLOOD GAS PO2 91.5 mmHg (80-100); ARTERIAL BLOOD GAS pH 7.45 (7.35-7.45)
[2018-08-13 06:02] LABS: CALCIUM 8.9 mg/dL (8.4-10.2); CREATININE, serum 0.84 (0.52-1.25); POTASSIUM 4.1 mmol/L (3.4-5.0)
--- NOTE | 2018-08-13 07:04 | NUR ---
Report given to ERICK Hickman; No significant changes or concerns at shift change; PICC to RUE. VALERO
--- NOTE | 2018-08-13 08:41 | NUR ---
Patient feeling much better this AM. Verbalizes no pain/discomfort. A/O x3. Skin w/d. Color pale pink. Lungs with a few expiratory wheezes/diminshed in bases. Noted non-productive cough. 02 changed to nasel cannula to monitor sats. 02 sats remain 92%. Encourged patient to cough and deep breathe. Discussed home care. Patient does not have 02 at home. Will speak with clinical social work aide. Tele remains on. Decreased shortness of air when up and moving around. Up to shower this AM
[2018-08-13 08:44] VITALS: BP 152/69; PULSE 64; TEMP 98.4
[2018-08-13] MEDS ORDERED: DOXYCYCLINE 10100 MG PO (09:52)
[2018-08-13] MEDS ORDERED: PREDNISONE20 MG PO (09:54)
--- NOTE | 2018-08-13 10:45 | NUR ---
SW followed up with patient about bipap recommendation and O2 needs. SW faxed order for new O2 liter flow to [facility] and patient will also recieve a bipap from [facility] as well. [facility] will schedule an appoitnemt to set patient up with the bipap. Patient will discharge home today.
[2018-08-13 11:28] VITALS: BP 139/59; PULSE 58; TEMP 98.5
--- NOTE | 2018-08-13 16:03 | NUR ---
Discharge instructions reviewed with son & patient. Emphasis placed on patient needed to stop smoking for the sake of her health but also as patient needs to be on 02 at all times. Smoking with 02 is not safe as there is a chance to start a fire. Patient verbalizes understanding but unsure if she completely understands. Reviewed instructions for Pulmonary Function Testing; Split Sleep Study and ABG. Provided patient information to make follow up appointment with Dr. Israel (as she has failed to follow up in the past); reviewed other appointments made for the patient. Review of medication list with patient and her son. Encouraged to monitor blood sugars and follow her diabetic diet. Patient looks puzzled or with a blank stare but verbalizes understanding. Unsure if understanding.
== END 2018-08-13 16:00 | disposition home or self-care (01) | DRG 189 ==
LOC: COL.ER 14:40 → MEDICAL 18:28
PROVIDERS: Family Medicine; Internal Medicine Pulmonary Disease; Nurse Practitioner; Nurse Practitioner Family; ADMIT Internal Medicine
PROC: 02HV33Z Insertion of Infusion Device into Superior Vena Cava, Percutaneous Approach (ICD-10-PCS; principal; 2018-08-11)
DX: J96.22 Acute and chronic respiratory failure with hypercapnia (principal); J44.1 Chronic obstructive pulmonary disease with (acute) exacerbation; I31.3 Pericardial effusion (noninflammatory); I50.32 Chronic diastolic (congestive) heart failure; I11.0 Hypertensive heart disease with heart failure; Z68.37 Body mass index [BMI] 37.0-37.9, adult; E11.9 Type 2 diabetes mellitus without complications; F17.210 Nicotine dependence, cigarettes, uncomplicated; Z79.4 Long term (current) use of insulin; E66.01 Morbid (severe) obesity due to excess calories; G47.33 Obstructive sleep apnea (adult) (pediatric); E11.65 Type 2 diabetes mellitus with hyperglycemia; I08.1 Rheumatic disorders of both mitral and tricuspid valves
CPT/HCPCS: 99222-AI; 99231-AI; 99233-AI; 99239; A9500; C1751; J1650; J1815; J1940; J2405; J2785; J2920; J7030; J7512; Q9967

== ENCOUNTER → 2018-08-17 | Outpatient (CLI) | payer MEDICAID ==
[~2018-08-17] MED LIST changes: +DOXYCYCLINE 10100 MG PO
== END ==
LOC: COL.RAD 09:17
DX: I50.9 Heart failure, unspecified (principal); J44.9 Chronic obstructive pulmonary disease, unspecified

== ENCOUNTER → 2019-02-15 | Outpatient (CLI) | payer MEDICAID ==
[2019-02-15 11:54] LABS: HEMATOCRIT 42.1 % (37.0-47.0); HEMOGLOBIN 13.7 g/dl (12.5-16.0); MEAN CELL VOLUME 97 fl (80.0-100.0); MEAN CORPUSCULAR HEMOGLOBIN 32 pg (27.0-31.0); MEAN CORPUSCULAR HGB CONC 33 g/dl (33.0-37.0); MEAN PLATELET VOLUME 10.8 fl (7.4-10.4); PLATELET COUNT 158 K/mm3 (130-400); RED BLOOD COUNT 4.33 M/mm3 (4.10-5.30)
== END ==
LOC: COL.RAD 11:13
PROVIDERS: Student in an Organized Health Care Education/Training Program
DX: Z01.818 Encounter for other preprocedural examination (principal); I51.7 Cardiomegaly; F17.210 Nicotine dependence, cigarettes, uncomplicated; N94.89 Other specified conditions associated with female genital organs and menstrual cycle

== ENCOUNTER 2020-06-16 12:53 | Emergency (ER) | payer MEDICAID ==
[~2020-06-16] VITALS: Ht 160 cm; Wt 100.0 kg
[2020-06-16 13:49] LABS: EOS % 0.3 % (0-4.0); GRAN % 66.7 % (42.2-75.2); HEMOGLOBIN 11.5 g/dl (12.5-16.0); LYMPH # 0.7 (1.2-3.4); LYMPH % 24.6 % (20.0-51.0); MEAN CELL VOLUME 97 fl (80.0-100.0); MEAN CORPUSCULAR HEMOGLOBIN 31 pg (27.0-31.0); MEAN CORPUSCULAR HGB CONC 32 g/dl (33.0-37.0); MEAN PLATELET VOLUME 11.3 fl (7.4-10.4); MONO # 0.2 (0.1-0.6); MONO % 8.1 % (1.7-9.3); PLATELET COUNT 101 K/mm3 (130-400); RED BLOOD COUNT 3.69 M/mm3 (4.10-5.30); REDCELL DISTRIBUTION WIDTH-CV 11.9 % (11.5-14.5)
[2020-06-16 13:59] LABS: ALBUMIN 3.3 gm/dL (3.5-5.0); BILIRUBIN,TOTAL 0.5 mg/dL (0.0-1.0); C-REACTIVE PROTEIN 2.8 mg/dL (0.0-0.9); CALCIUM 8.4 mg/dL (8.4-10.2); CREATININE, serum 0.96 (0.52-1.25); POTASSIUM 4.2 mmol/L (3.4-5.0); TOTAL PROTEIN 6.1 gm/dL (6.4-8.2)
[2020-06-16 14:00] LABS: HEMATOCRIT 35.6 % (37.0-47.0)
[2020-06-16 14:07] LABS: TROPONIN-I 0.022 ng/mL (0.000-0.035)
[2020-06-16] MEDS ORDERED: ZITHROMAX Z PA250 MG PO (14:37)
[2020-06-16 17:27] VITALS: BP 113/54; PULSE 87; TEMP 97.4
== END 2020-06-16 17:37 | disposition home or self-care (01) ==
LOC: COL.ER 12:53
PROVIDERS: Nurse Practitioner Primary Care
DX: U07.1 COVID-19 (principal); J44.9 Chronic obstructive pulmonary disease, unspecified; I11.0 Hypertensive heart disease with heart failure; I50.9 Heart failure, unspecified; E11.9 Type 2 diabetes mellitus without complications; F17.210 Nicotine dependence, cigarettes, uncomplicated; Z88.2 Allergy status to sulfonamides; Z88.0 Allergy status to penicillin; Z79.51 Long term (current) use of inhaled steroids; Z79.4 Long term (current) use of insulin; Z79.82 Long term (current) use of aspirin
CPT/HCPCS: J1100; J7030; J7050

== ENCOUNTER 2021-03-25 13:20 | Emergency (ER) | payer MEDICAID ==
[~2021-03-25] VITALS: Ht 160 cm; Wt 100.0 kg
[~2021-03-25 13:20] MED LIST changes: +ZITHROMAX Z PA250 MG PO
[2021-03-25 13:52] VITALS: TEMP 98
[2021-03-25 14:18] LABS: COLLECTION METHOD CLEAN CATCH
[2021-03-25 14:29] LABS: PH 5 (5-8); URINE APPEARANCE Hazy; URINE BACTERIA Many /hpf; URINE BILIRUBIN Negative (NEGATIVE); URINE BLOOD Negative (NEGATIVE); URINE COLOR Yellow; URINE GLUCOSE Negative (NEGATIVE); URINE KETONE Negative (NEGATIVE); URINE LEUKOCYTE ESTERASE 1+ (NEGATIVE); URINE NITRATE Positive (NEGATIVE); URINE PROTEIN(semi-quant) Negative (NEGATIVE); URINE UROBILINOGEN Negative (NEGATIVE)
[2021-03-25] MEDS ORDERED: CEPHALEXIN500 M1 PO (15:04)
[2021-03-25 15:14] VITALS: BP 122/68; PULSE 63
== END 2021-03-25 15:14 | disposition home or self-care (01) ==
LOC: COL.ER 13:20
PROVIDERS: Emergency Medicine
DX: N39.0 Urinary tract infection, site not specified (principal); I11.0 Hypertensive heart disease with heart failure; E11.9 Type 2 diabetes mellitus without complications; J44.9 Chronic obstructive pulmonary disease, unspecified; I50.9 Heart failure, unspecified; F17.200 Nicotine dependence, unspecified, uncomplicated; Z79.4 Long term (current) use of insulin; Z79.51 Long term (current) use of inhaled steroids; Z79.52 Long term (current) use of systemic steroids; Z79.899 Other long term (current) drug therapy

== ENCOUNTER → 2021-09-12 | Outpatient (CLI) | payer MEDICAID ==
[~2021-09-12] MED LIST changes: +CEPHALEXIN500 M1 PO
== END ==
LOC: COL.RAD 12:24
DX: I51.7 Cardiomegaly (principal); I50.9 Heart failure, unspecified

== ENCOUNTER 2023-02-15 10:00 | Observation (INO) | payer MEDICARE, MEDICAID ==
[2023-02-15] VITALS (7 sets, daily range): BP systolic 112–126; BP diastolic 50–67; PULSE 68–73; TEMP 97.8–98.3
[~2023-02-15] VITALS: Ht 160 cm; Wt 100.0 kg
[~2023-02-15 10:00] MED LIST changes: +COREG 25MG25 MG/TAB PO; +LEVEMIR100 U/ML SQ; +LIPITOR20 MG PO; +OXYGEN NASAL.CANN; +PRINIVIL40 MG PO; +RT ADVAIR 228 DISKUS IH; +RT SPIRIVA18 MCG IH
[2023-02-15 10:41] LABS: BASO % 0.3 % (0.0-2.0); EOS # 0.2 K/mm3 (0.0-0.7); EOS % 2.5 % (0.0-4.0); GRAN # 4.7 K/mm3 (1.4-6.5); GRAN % 73.2 % (42.2-75.2); HEMATOCRIT 40.8 % (37.0-47.0); HEMOGLOBIN 12.9 g/dl (12.5-16.0); LYMPH # 1.2 K/mm3 (1.2-3.4); LYMPH % 18.3 % (20.0-51.0); MEAN CELL VOLUME 102 fl (80.0-100.0); MEAN CORPUSCULAR HEMOGLOBIN 32 pg (27-31); MEAN CORPUSCULAR HGB CONC 32 g/dl (33.0-37.0); MEAN PLATELET VOLUME 10.6 fl (7.4-10.4); MONO # 0.3 K/mm3 (0.1-0.6); MONO % 5.2 % (1.7-9.3); PLATELET COUNT 150 K/mm3 (130-400); RED BLOOD COUNT 4.01 M/mm3 (4.10-5.30); REDCELL DISTRIBUTION WIDTH-CV 12.5 % (11.5-14.5)
[2023-02-15 10:54] LABS: ALBUMIN 3.2 gm/dL (3.4-4.8); BILIRUBIN,TOTAL 0.5 mg/dL (0.2-1.2); CALCIUM 9.4 mg/dL (8.4-10.2); POTASSIUM 4.5 mmol/L (3.5-4.5); TOTAL PROTEIN 5.9 gm/dL (6.2-8.1)
[2023-02-15 11:00] LABS: TROPONIN-I 0.025 ng/mL (0.00-0.033)
[2023-02-15 11:25] LABS: COLLECTION METHOD CLEAN CATCH
[2023-02-15 12:11] LABS: URINE APPEARANCE Clear (CLEAR/HAZY); URINE BLOOD Negative (NEGATIVE); URINE COLOR Yellow (YELLOW); URINE GLUCOSE TRACE (NEGATIVE); URINE KETONE TRACE (NEGATIVE); URINE NITRATE Positive (NEGATIVE); URINE PROTEIN(semi-quant) TRACE (NEGATIVE)
[2023-02-15 12:12] LABS: SQUAMOUS EPITHELIAL 0-2 /hpf (0-10); URINE BACTERIA Moderate /hpf (NONE SEEN); URINE RBC None Seen /hpf (0-2)
--- NOTE | 2023-02-15 14:39 | NUR ---
Hub Bander met with patient to discuss discharge planning. Patient lives in [place], [place] with her , Corey (ph#[phone]) and sees Aditi Waller NP at [facility] in [place] for primary care. Patient obtains medications from [facility] with no difficulties. Patient has home oxygen through [facility] and denies any other DME. Patient stated she needs a CPAP but has not been able to obtain one. Patient advised she's been told she needs a sleep study, but that one has never been scheduled. Patient reported independence with ADLS. Patient advised she has Medicare A/B, however patient's records indicate she has a Medicare Advantage Plan. Patient is also concerned she has lost her [employer] (Medicaid). SW sent email to Case Management and Financial Team for follow up. Patient advised her , Corey is DPOA-HC. Patient plans to return home when she is ready for discharge. Discharge Plan: Home
--- NOTE | 2023-02-15 16:10 | NUR ---
PHYSICIAN INFORMED PATIENT HAS A BLOOD SUGAR OF 419
--- NOTE | 2023-02-15 17:28 | NUR ---
PHSYICIAN INFORMED PATIENTS BLOOD SUGAR IS CURRENTLY 418, PATIENT WAS GIVEN 10 UNITS OF INSULIN AT 1620 AND THIS IS THE RECHECK. PER RN TO GIVE ANOTHER 10 UNITS PER SLIDING SCALE PROTOCOL.
--- NOTE | 2023-02-15 18:30 | NUR ---
WIRER MAINTENANCE CALLED THAT RN NEEDS SALINE NASAL SPRAY FROM PHARMACY. PER WIRER MAINTENANCE THEY WILL BRING IT UP WHEN ABLE.
--- NOTE | 2023-02-15 18:33 | NUR ---
PATIENT REFUSING FLU AND COVID VACCINES
--- NOTE | 2023-02-15 20:30 | NUR ---
Patient resting in bed. Denies any pain at this time. Patient ambulated to bathroom and back to bed with no complications. IV flushes with no complications. Assessment complete. Denies any other needs at this time. Call light and personal items in reach. Bed in low position and non-slip footwear in place.
[2023-02-16] VITALS (7 sets, daily range): BP systolic 112–124; BP diastolic 50–57; PULSE 71–83; TEMP 98–98.2
--- NOTE | 2023-02-16 05:45 | NUR ---
Patient resting in bed. Denies any pain at this time. Denies any needs at this time. Call light and personal items in reach. Bed in low position and non-slip footwear in place.
[2023-02-16 06:11] LABS: HEMATOCRIT 40.4 % (37.0-47.0); HEMOGLOBIN 13.2 g/dl (12.5-16.0); MEAN CELL VOLUME 98 fl (80.0-100.0); MEAN CORPUSCULAR HEMOGLOBIN 32 pg (27-31); MEAN CORPUSCULAR HGB CONC 33 g/dl (33.0-37.0); MEAN PLATELET VOLUME 11.4 fl (7.4-10.4); PLATELET COUNT 159 K/mm3 (130-400); RED BLOOD COUNT 4.13 M/mm3 (4.10-5.30); REDCELL DISTRIBUTION WIDTH-CV 12.4 % (11.5-14.5)
[2023-02-16 06:30] LABS: CALCIUM 9.7 mg/dL (8.4-10.2); CREATININE, serum 1.19 mg/dL (0.57-1.11); POTASSIUM 4.2 mmol/L (3.5-4.5)
[2023-02-16 07:03] LABS: BAND 2 % (0-10); LYMPHOCYTE 10 % (20.0-51.0); NEUTROPHILS 88 % (42.0-75.2); PLATELET ESTIMATE NORMAL (NORMAL)
--- NOTE | 2023-02-16 07:10 | NUR ---
sitting up in bed ready for breakfast, bedside shift report received from ERICK Douglas
--- NOTE | 2023-02-16 07:38 | NUR ---
AVERY Howard notified of blood sugar 460
--- NOTE | 2023-02-16 07:47 | NUR ---
PATIENT OM 3 LPM, SPO2 94%, BS FINE CRACKELS IN BASES AND DIMINISHED. AYDEN WELL BREATHING TX.
--- NOTE | 2023-02-16 09:30 | NUR ---
O2 down to 3L and will check O2 sat in 10 minutes, full assessment completed, see interventions for further info, Dr Israel was in to see patient, patient is asking about going home later today and informed her it will depend on how she does today
[2023-02-16] MEDS ORDERED: PREDNISONE20 MG PO (09:57)
[2023-02-16] MEDS ORDERED: OMNICEF 300MG300 MG PO (09:58)
[2023-02-16] MEDS ORDERED: ZITHROMAX500 M2 PO (09:58)
--- NOTE | 2023-02-16 10:00 | NUR ---
O2 sat was 86-88% on 3L, increased to 4L and will monitor
--- NOTE | 2023-02-16 10:13 | NUR ---
O2 sat is 90% on 4L
--- NOTE | 2023-02-16 13:57 | NUR ---
Initial visit: Home Service Director stopped by room on rounds. Pt was resting and content. Pt has no needs right now. Home Service Director will follow up as needed.
--- NOTE | 2023-02-16 14:10 | NUR ---
Pulmonary Rehab staff will follow up with patient as outpatient. COPD diagnosis - Qualifies for outpatient Pulmonary Rehab staff unable to see today before discharge. Thank you for referral.
--- NOTE | 2023-02-16 14:25 | NUR ---
discharge instructions and new medication instructions given to patient and her and verbalizes understanding
--- NOTE | 2023-02-16 14:30 | NUR ---
discharged per WC
== END 2023-02-16 14:30 | disposition home or self-care (01) ==
LOC: COL.ER 10:00 → MEDICAL 12:04
PROVIDERS: Emergency Medicine; ADMIT Hospitalist
DX: J44.1 Chronic obstructive pulmonary disease with (acute) exacerbation (principal); J96.21 Acute and chronic respiratory failure with hypoxia; E11.621 Type 2 diabetes mellitus with foot ulcer; N39.0 Urinary tract infection, site not specified; I10 Essential (primary) hypertension; E66.01 Morbid (severe) obesity due to excess calories; I50.30 Unspecified diastolic (congestive) heart failure; F17.210 Nicotine dependence, cigarettes, uncomplicated; Z79.899 Other long term (current) drug therapy; Z79.4 Long term (current) use of insulin; Z79.82 Long term (current) use of aspirin
CPT/HCPCS: A9270; A9284; G0378; J0456; J0696; J1650; J1815; J2920; J2930; J7050

== ENCOUNTER 2024-01-12 23:26 | Inpatient (IN) | payer MEDICARE, MEDICAID ==
[~2024-01-12] VITALS: Ht 162.6 cm; Wt 97.8 kg
[2024-01-12 23:26] VITALS: BP 87/50; PULSE 42
[~2024-01-12 23:26] MED LIST changes: +ZITHROMAX500 M2 PO; +fentaNYL 50 MCG/ML 2 ML VIAL IV ONE
[2024-01-12 23:28] VITALS: BP 113/65; PULSE 42
[2024-01-12 23:45] VITALS: BP 152/68; PULSE 47
[2024-01-12] MEDS ORDERED: fentaNYL 100 ML IV ONE (23:45)
[2024-01-12] MEDS ORDERED: Magnesium Sulfate 4% 50 ML IV ONE (23:45)
[2024-01-12] MEDS ORDERED: Cefepime 2 G in Water For Injection,Sterile 20 ML IV SCH (23:45)
[2024-01-12] MEDS ORDERED: EPINEPHrine 2 MG in D5W 100 ML IV ONE (23:45)
[2024-01-13] VITALS (607 sets, daily range): BP systolic 91–135; BP diastolic 31–67; PULSE 43–82; TEMP 97.5–98.7; O2SAT 86–100
[2024-01-13] MEDS ORDERED: Albuterol/Ipratropium 3 MG-0.5 MG/3 ML Neb Soln IH SCH ×2 (00:15→08:00)
[2024-01-13 00:33] LABS: HEMOGLOBIN 12.5 g/dl (12.5-16.0); MEAN CELL VOLUME 103 fl (80.0-100.0); MEAN CORPUSCULAR HEMOGLOBIN 32 pg (27-31); MEAN CORPUSCULAR HGB CONC 31 g/dl (33.0-37.0); MEAN PLATELET VOLUME 10.9 fl (7.4-10.4); PLATELET COUNT 212 K/mm3 (130-400); REDCELL DISTRIBUTION WIDTH-CV 12.2 % (11.5-14.5)
[2024-01-13 00:34] LABS: ALBUMIN 3.3 g/dL (3.4-4.8); BILIRUBIN,TOTAL 0.6 mg/dL (0.2-1.2); CALCIUM 9.2 mg/dL (8.4-10.2); CREATININE, serum 1.17 mg/dL (0.57-1.11); POTASSIUM 4.8 mEq/L (3.5-4.5); TOTAL PROTEIN 6.2 g/dl (6.2-8.1)
[2024-01-13 00:41] LABS: TROPONIN-I 0.034 ng/mL (0.00-0.033)
[2024-01-13] MEDS ORDERED: LR 1,000 ML IV ONE (01:00)
[2024-01-13] MEDS ORDERED: EPINEPHrine 2 MG in D5W 100 ML IV ONE (01:05)
[2024-01-13] MEDS ORDERED: Albuterol 0.083% Neb Soln 2.5 MG/3 ML UD IH ONE (01:15)
[2024-01-13 01:21] LABS: BAND 3 % (0-10); LYMPHOCYTE 18 % (20.0-51.0); NEUTROPHILS 75 % (42.0-75.2)
[2024-01-13 01:22] LABS: PLATELET ESTIMATE NORMAL (NORMAL)
[2024-01-13] MEDS ORDERED: Iohexol 300 - 100 ML VIAL IV ONE (02:15)
[2024-01-13 03:02] LABS: ARTERIAL BLD GAS O2 SATURATION 98.1 % (92-100); ARTERIAL BLD GAS TCO2 CT 34.8; ARTERIAL BLOOD GAS BASE EXCESS 3.1 (-2-2); ARTERIAL BLOOD GAS HCO3 32.5 meq/L (22-26); ARTERIAL BLOOD GAS pH 7.25 (7.35-7.45)
[2024-01-13 03:03] LABS: ARTERIAL BLOOD GAS PCO2 75.4 mmHg (35-45); ARTERIAL BLOOD GAS PO2 129.8 mmHg (80-100)
[2024-01-13 03:15] LABS: COLLECTION METHOD CLEAN CATCH
--- NOTE | 2024-01-13 03:30 | NUR ---
PT RR INCREASED FROM 16 TO 20 PER VBG RESULTS OF PCO2 OF 96 AND PER . IT ALSO MODIFIED FROM .70 TO .65 FOR PT COMFORT AND TO PREVENT AIRTRAPPING. PT TOLERATING WELL . ABG TO FOLLOW TO MONITOR PCO2
[2024-01-13 03:32] LABS: URINE APPEARANCE CLEAR (CLEAR/HAZY); URINE BLOOD NEGATIVE (NEGATIVE); URINE COLOR YELLOW (YELLOW); URINE GLUCOSE 3+ (NEGATIVE); URINE KETONE NEGATIVE (NEGATIVE); URINE NITRATE NEGATIVE (NEGATIVE); URINE PROTEIN(semi-quant) 1+ (NEGATIVE); URINE UROBILINOGEN 0.2 E.U/dL (0.2-1.0)
[2024-01-13] MEDS ORDERED: Vasopressin 20 UNITS in NS 100 ML IV PRN (04:00)
[2024-01-13] MEDS ORDERED: LR 1,000 ML IV SCH ×2 (04:00→04:30)
[2024-01-13] MEDS ORDERED: Insulin Human Regular/NS 100 ML IV SCH (04:00)
[2024-01-13] MEDS ORDERED: Dextrose 50% Water 25 GM/50 ML SYRINGE IV PRN ×2 (04:00→22:30)
[2024-01-13] MEDS ORDERED: fentaNYL 100 ML IV SCH (04:15)
[2024-01-13] MEDS ORDERED: Naloxone 0.4 MG/ML VIAL IV PRN (04:15)
[2024-01-13] MEDS ORDERED: Albuterol/Ipratropium 3 MG-0.5 MG/3 ML Neb Soln IH PRN (04:15)
[2024-01-13] MEDS ORDERED: Cosyntropin 0.25 MG in NS 5 ML IV ONE (05:00)
[2024-01-13 05:07] LABS: BASO % 0.1 % (0.0-2.0); EOS % 0.1 % (0.0-4.0); GRAN # 11.2 K/mm3 (1.4-6.5); GRAN % 88.1 % (42.2-75.2); HEMOGLOBIN 11.1 g/dl (12.5-16.0); LYMPH # 0.8 K/mm3 (1.2-3.4); LYMPH % 6.3 % (20.0-51.0); MEAN CELL VOLUME 99 fl (80.0-100.0); MEAN CORPUSCULAR HEMOGLOBIN 32 pg (27-31); MEAN CORPUSCULAR HGB CONC 32 g/dl (33.0-37.0); MEAN PLATELET VOLUME 10.8 fl (7.4-10.4); MONO # 0.6 K/mm3 (0.1-0.6); MONO % 4.8 % (1.7-9.3); PLATELET COUNT 151 K/mm3 (130-400); RED BLOOD COUNT 3.49 M/mm3 (4.10-5.30); REDCELL DISTRIBUTION WIDTH-CV 12.2 % (11.5-14.5)
--- NOTE | 2024-01-13 05:09 | NUR ---
SEDATION VACATION NOT APPROPRIATE, PATIENT JUST INTUBATED AND SEDATED EARLY THIS MORNING
[2024-01-13 05:10] LABS: HEMATOCRIT 34.4 % (37.0-47.0); INR 1.1 (0.8-3.0); PROTHROMBIN TIME 11.7 SECONDS (9.7-12.8)
--- NOTE | 2024-01-13 05:50 | NUR ---
PATIENT COMES TO US FROM ED ON VENT D/T COPD EXACERBATION. PATIENT IS COOL TO THE TOUCH, PALE, SKIN DRY. PATIENT IS SEDATED BUT EASILY ROUSED. PATIENT IN 2 POINT SOFT WRIST RESTRAINT. PATIENT CAME OVER ON AN EPI DRIP, TITRATED ALL THE WAY DOWN TO OFF AND PRESSURES STAYING STABLE. BED IN LOW POSITION
[2024-01-13 05:53] LABS: BILIRUBIN,TOTAL 0.6 mg/dL (0.2-1.2); CALCIUM 9.1 mg/dL (8.4-10.2); CREATININE, serum 1.01 mg/dL (0.57-1.11); POTASSIUM 5.4 mEq/L (3.5-4.5); TOTAL PROTEIN 5.2 g/dl (6.2-8.1)
[2024-01-13 06:28] LABS: MAGNESIUM 2.1 mg/dL (1.6-2.6); PHOSPHOROUS 2.7 mg/dL (2.3-4.7)
[2024-01-13] MEDS ORDERED: Formoterol Neb Soln 20 MCG/2 ML UD IH SCH (07:00)
[2024-01-13] MEDS ORDERED: Budesonide Neb Susp 0.5 MG/2 ML AMP IH SCH (07:00)
--- NOTE | 2024-01-13 07:00 | NUR ---
Report received from ERICK Cordon; patient currently sedated on ventilator with fentanyl and propofol running for sedation. Patient also on insulin drip and IV fluids, all running through her right femoral central line. Patient has an ET tube, an OG, tube, and a Mata catheter in place, along with a peripheral INT; no other lines or tubes are in place at this time. Patient's vital signs are within normal limits this morning; blood pressures are on the soft side but MAP and systolic pressure remain normal.
[2024-01-13] MEDS ORDERED: Cefepime 1 G in Water For Injection,Sterile 10 ML IV SCH (08:00)
[2024-01-13 08:42] LABS: ARTERIAL BLD GAS O2 SATURATION 82.1 % (92-100); ARTERIAL BLOOD GAS BASE EXCESS 7.5 (-2-2); ARTERIAL BLOOD GAS HCO3 32.5 meq/L (22-26); ARTERIAL BLOOD GAS PCO2 47.5 mmHg (35-45); ARTERIAL BLOOD GAS PO2 41.5 mmHg (80-100); ARTERIAL BLOOD GAS pH 7.45 (7.35-7.45)
[2024-01-13] MEDS ORDERED: Midazolam 100 ML IV SCH (09:00)
[2024-01-13] MEDS ORDERED: dexAMETHasone 10 MG/ML VIAL IV SCH (09:00)
[2024-01-13] MEDS ORDERED: Insulin Glargine-ygfn (Lantus) SQ ONE (09:00)
--- NOTE | 2024-01-13 10:06 | NUR ---
lavender farm worker notes pt is intubated at this time. , Corey [phone] is at bedside to discuss. He reports to live with pt in [place]. Pt sees ARLEEN Waller for PCP needs and obtains medications from [facility] with no difficulties. confirmed pt has Medicare A/B and Medicaid insurance. He reports pt typically needs assistance with bathing, but is otherwise independent. He states pt uses a CPAP and home oxygen from [facility] at 3.5L all day for DME. states pt does not have a DPOA-HC. reports to SW that pt was almost intubated previously and was coherent enough to decline. He reports at this time pt was altered and not able to make this decision, so he decided to intubate her since she "needed oxygen." He reports that pt can be "made at me later." DAVIDE verbalized understanding and informed ERICK Anguiano of this. PT pending Discharge Plan: [place]
--- NOTE | 2024-01-13 10:30 | NUR ---
Patient's home meds and jewelry were sent home with patient's family; patient is still wearing one ring on her right hand that won't come off. This nurse removed patient's earrings and put them in the cup with the rest of her jewelry that took home.
--- NOTE | 2024-01-13 10:56 | NUR ---
Initial visit attempt; Patient experiencing respiratory failure. Three members of her family were present. Ticker Installer spoke with them letting them know she is available to offer Spiritual Care at their request and wished them all well and God's blessings.
[2024-01-13 13:47] LABS: ARTERIAL BLD GAS O2 SATURATION 97.4 % (92-100); ARTERIAL BLD GAS TCO2 CT 32.4; ARTERIAL BLOOD GAS BASE EXCESS 8.3 (-2-2); ARTERIAL BLOOD GAS HCO3 31.2 meq/L (22-26); ARTERIAL BLOOD GAS PCO2 37.3 mmHg (35-45); ARTERIAL BLOOD GAS PO2 90.5 mmHg (80-100); ARTERIAL BLOOD GAS pH 7.54 (7.35-7.45)
[2024-01-13 14:56] LABS: MAGNESIUM 2.1 mg/dL (1.6-2.6); POTASSIUM 5.4 mEq/L (3.5-4.5)
--- NOTE | 2024-01-13 17:00 | NUR ---
Sedation vacation done this morning to assess patient's mental status; patient was able to follow commands and answer questions appropriately. Sedation meds restarted at prior levels and per Dr. Israel we did not have to take patient to get a CT head.
--- NOTE | 2024-01-13 20:00 | NUR ---
Pt lying in bed on ventilator, appears comfortable with no thrashing or apparent discomfort. VSS. Central line infusing with IV fluids, fentanyl, and versed for sedation. Evening medications administered without difficulty. Pt able to slightly open eyes on command, but not able to squeeze fingers or wiggle toes. Mata catheter draining to dependent drainage. Bilateral wrist restraints in place due to medical management. Pt does appear to be in pain or discomfort at this time.
[2024-01-13] MEDS ORDERED: Atorvastatin 20 MG TAB PO SCH (21:00)
[2024-01-13] MEDS ORDERED: Glucagon 1 MG VIAL IM PRN (22:30)
[2024-01-13] MEDS ORDERED: Dextrose (Glucose) 15 GM (4 x 3.75 GM) Chewable TABLET PACK PO PRN (22:30)
[2024-01-14] VITALS (765 sets, daily range): BP systolic 101–145; BP diastolic 62–77; PULSE 73–92; TEMP 98.1–98.7; O2SAT 81–100
--- NOTE | 2024-01-14 | NUR ---
Pt continues to rest in bed on ventilator, appears comfortable and not in any distress. Central line infusing with IV fluid, fentanyl, and versed for sedation. Central line dressing changed by this RN. Pt repositioned, appears comfortable and tolerating ventilator well.
[2024-01-14 05:04] LABS: BASO % 0.1 % (0.0-2.0); EOS % 0.1 % (0.0-4.0); GRAN # 7.9 K/mm3 (1.4-6.5); GRAN % 85.2 % (42.2-75.2); LYMPH # 0.9 K/mm3 (1.2-3.4); MEAN CELL VOLUME 99 fl (80.0-100.0); MEAN CORPUSCULAR HEMOGLOBIN 32 pg (27-31); MEAN CORPUSCULAR HGB CONC 33 g/dl (33.0-37.0); MEAN PLATELET VOLUME 11.1 fl (7.4-10.4); MONO # 0.4 K/mm3 (0.1-0.6); PLATELET COUNT 143 K/mm3 (130-400); RED BLOOD COUNT 3.41 M/mm3 (4.10-5.30); REDCELL DISTRIBUTION WIDTH-CV 12.5 % (11.5-14.5)
[2024-01-14 05:05] LABS: HEMATOCRIT 33.8 % (37.0-47.0)
[2024-01-14 05:13] LABS: ARTERIAL BLD GAS O2 SATURATION 94.8 % (92-100); ARTERIAL BLOOD GAS BASE EXCESS 4.9 (-2-2); ARTERIAL BLOOD GAS HCO3 29.6 meq/L (22-26); ARTERIAL BLOOD GAS PCO2 44.5 mmHg (35-45); ARTERIAL BLOOD GAS PO2 74.3 mmHg (80-100); ARTERIAL BLOOD GAS pH 7.44 (7.35-7.45)
[2024-01-14 05:19] LABS: ALBUMIN 2.6 g/dL (3.4-4.8); BILIRUBIN,TOTAL 0.4 mg/dL (0.2-1.2); CALCIUM 9.2 mg/dL (8.4-10.2); CREATININE, serum 0.84 mg/dL (0.57-1.11); MAGNESIUM 2.1 mg/dL (1.6-2.6); PHOSPHOROUS 3.9 mg/dL (2.3-4.7); POTASSIUM 4.6 mEq/L (3.5-4.5)
--- NOTE | 2024-01-14 06:00 | NUR ---
Pt tolerating sedation vacation well. VSS. Pt does not appear in any distress, not thrashing about, and looks comfortable.
--- NOTE | 2024-01-14 07:10 | NUR ---
Report received from ERICK Serrano; patient currently sedated on ventilator with fentanyl and versed running for sedation. Patient also has IV fluids running; all are running through patient's right femoral central line. Patient has an ET tube, an OG tube, and a Mata catheter; no other lines or tubes are in place at this time. Patient's vital signs are within normal limits this morning and patient is tolerating the ventilator well.
[2024-01-14 10:56] LABS: ARTERIAL BLD GAS O2 SATURATION 92.6 % (92-100); ARTERIAL BLD GAS TCO2 CT 29.3; ARTERIAL BLOOD GAS BASE EXCESS 2.4 (-2-2); ARTERIAL BLOOD GAS HCO3 27.8 meq/L (22-26); ARTERIAL BLOOD GAS PCO2 46.3 mmHg (35-45); ARTERIAL BLOOD GAS PO2 67.3 mmHg (80-100)
--- NOTE | 2024-01-14 11:20 | NUR ---
Patient extubated at approx 1117 with this nurse, Clementine RT, and ERICK Coffey student bedside. Patient was placed on oxygen running at 8 LPM via oxymask post-extubation. Patient asking for lunch; explained to patient that she was not able to eat yet and that we could start with some ice chips and work our way up to food later. Patient tolerated extubation well.
--- NOTE | 2024-01-14 11:26 | NUR ---
PT EXTUBATED PER VERBAL ORDER FROM [facility]. PT PLACED N 8LPM OM, WILL TITRATE TO MAINTAIN SATS BETWEEN 90-93%
--- NOTE | 2024-01-14 11:48 | NUR ---
grain ii farmworker was notified by patient's nurse that the family confirmed patient does not have a CPAP at home and they have done numerous sleep studies but they have been inconclusive or they have had difficulty getting the full amount of hours needed. SW met with patient and family members to discuss the need for the CPAP. Patient is intubated and was able to communicate very little. Patient's family members explained they have done 3-4 sleep studies in the last couple years but they have either been inconclusive or unable to complete the full 4-5 hours that the sleep study needs due to her needing oxygen at night. SW explained they could send an order for a CPAP but the DME company will need a sleep study showing the need for the CPAP. Patient and family understood. SW obtained DME order for CPAP but patient will need settings for the CPAP. SW was notified patient will be extubated today and placed on BiPAP. SW notified patient's nurse and family members that social work will follow up tomorrow to determine if they can use those settings or patient could obtain a BiPAP but either way the home medical store will need a sleep study. SW was notified patient obtains her oxygen through [facility]. Patient was extubated and will remain in the ICU today according to patient's nurse. SW notified DAVIDE Liu, main ICU social worker delinquency prevention, of the above information.
--- NOTE | 2024-01-14 16:56 | NUR ---
PT TAKEN OVER FROM GOKUL SUAREZ. PT IN BED TALKING ON PHONE. PT ASKS ABOUT DINNER TRAY. RN EDUCATED ON DINNER TIMES
[2024-01-14] MEDS ORDERED: Insulin Glargine-ygfn (Lantus) SQ ONE (17:45)
[2024-01-14] MEDS ORDERED: Insulin Lispro (HumaLOG) SQ SCH ×2 (18:00)
--- NOTE | 2024-01-14 20:00 | NUR ---
Pt resting comfortably in bed, watching tv and playing on her phone. VSS. Central line infusing with IV fluids per order without difficulty. Pt able to tolerate drinking water and eating ice chips. Evening medications administered without difficulty. Pt denies pain or discomfort at this time. Pt able to reposition self on own. Pt does not state any questions or concerns at this time.
[2024-01-15] VITALS (209 sets, daily range): BP systolic 107–156; BP diastolic 53–91; PULSE 62–80; TEMP 97.9–98.4; O2SAT 86–100
[2024-01-15 05:09] LABS: BASO % 0.1 % (0.0-2.0); EOS % 0.1 % (0.0-4.0); GRAN # 6.8 K/mm3 (1.4-6.5); GRAN % 81.3 % (42.2-75.2); HEMOGLOBIN 10.8 g/dl (12.5-16.0); LYMPH # 0.9 K/mm3 (1.2-3.4); LYMPH % 11.2 % (20.0-51.0); MEAN CELL VOLUME 99 fl (80.0-100.0); MEAN CORPUSCULAR HEMOGLOBIN 32 pg (27-31); MEAN CORPUSCULAR HGB CONC 33 g/dl (33.0-37.0); MEAN PLATELET VOLUME 10.9 fl (7.4-10.4); MONO # 0.6 K/mm3 (0.1-0.6); MONO % 6.8 % (1.7-9.3); PLATELET COUNT 137 K/mm3 (130-400); RED BLOOD COUNT 3.33 M/mm3 (4.10-5.30); REDCELL DISTRIBUTION WIDTH-CV 12.2 % (11.5-14.5)
[2024-01-15 05:25] LABS: ALBUMIN 2.5 g/dL (3.4-4.8); BILIRUBIN,TOTAL 0.4 mg/dL (0.2-1.2); CREATININE, serum 0.83 mg/dL (0.57-1.11); MAGNESIUM 2.1 mg/dL (1.6-2.6); PHOSPHOROUS 2.4 mg/dL (2.3-4.7); POTASSIUM 4.2 mEq/L (3.5-4.5); TOTAL PROTEIN 4.8 g/dl (6.2-8.1)
[2024-01-15 05:27] LABS: ARTERIAL BLD GAS O2 SATURATION 96.2 % (92-100); ARTERIAL BLD GAS TCO2 CT 32.2; ARTERIAL BLOOD GAS BASE EXCESS 5.8 (-2-2); ARTERIAL BLOOD GAS HCO3 30.8 meq/L (22-26); ARTERIAL BLOOD GAS PCO2 46.4 mmHg (35-45); ARTERIAL BLOOD GAS PO2 80.8 mmHg (80-100); ARTERIAL BLOOD GAS pH 7.44 (7.35-7.45)
--- NOTE | 2024-01-15 05:39 | NUR ---
RIGHT FEM CENTRAL LINE REMOVED. PATIENT TOLERATED PROCEDURE WELL. 3 SUTURES REMOVED, CATHETER TIP INTACT, NO SIGNS OF INFECTION. PATIENT WANTED TO BE SAT AT A 15 DEGREE ANGLE
--- NOTE | 2024-01-15 07:00 | NUR ---
Report receive from ERICK Serrano. Reviewed overnight events and labs. Pt wore bipap overnight. Pt resting on O2 via NC. Fall precautions in placed. Call light wihtin reach. Will continue with POC.
--- NOTE | 2024-01-15 07:47 | NUR ---
Encouraged pt to get up in chair to eat breakfast. Pt refused. Pt educated about benefits of getting up to chair and moving more. Pt continued to refuse. Adjusted self in bed to sitting position to eat breakfast.
[2024-01-15] MEDS ORDERED: CEFTIN500 MG PO (09:39)
[2024-01-15] MEDS ORDERED: MEDROL 4MG DOSPA4 MG PO (09:40)
[2024-01-15] MEDS ORDERED: Acetaminophen 500 MG TAB PO ONE (09:45)
--- NOTE | 2024-01-15 09:47 | NUR ---
Mata discontinued by Student nurseErlinda supervised by this RN. Pt tolerated procedure without issues. Pericare provied.
--- NOTE | 2024-01-15 10:58 | NUR ---
This Rn scheduled follow up with PCP, Aditi Waller for 01/27/24 at 2:20. Attempted to schedule appoinment with Dr. Lynn office however pt has been dismissed from office. Dr. Israel stated she would need to establish with pulmonolgy in [place]. Updated patient.
--- NOTE | 2024-01-15 11:17 | NUR ---
DAVIDE spoke with Dr. Anahy Israel during rounding and was advised pt needs a BIPAP ST. Dr. Israel wrote the settings for SW on DME form. He reports pt wants to d/c today and he is hesitant to state if the insurance will approve this. SW completed the DME form and emailed referral to [facility]. DAVIDE notes PT worked with pt utilizing a walker and Dr. Das inquires about HH. SW met with pt and provided information on Home Health, to which she declines. She reports talking with her previously and wanting a private duty caregiver. SW informed her this would be private pay and she would reach out to local agencies to see if they can provide this. SW also offered to order a FWW and pt quickly declined. She reports that a wheelchair will get her home from the car and her /son can help her inside where she is mostly home bound. SW advised she will work on the BIPAP order, but is unsure if it will be approved at this time. DAVIDE called pt's , Corey to provide information that pt is wanting to discharge today. He reports being aware of this. He was informed SW discuss HH and FWW. states, "I don't think she needs a walker, she gets around fine when her CO2 is normal." SW advised she wanted to inform him that it was discussed and declined. He reports mostly being focused on the CPAP. SW advised Dr. Anahy Israel wrote for a BIPAP and she sent this to [facility] to see if they can order this. He reports frustration about her being re-hospitalized. SW allowed him to express frustrations and informed Dr. Das of this who does not disagree about the potential. DAVIDE was informed by [facility] pt qualifies for a non-invasive ventilator and provided information on forms needed. DAVIDE spoke with Dr. Anahy Israel who reports this is not the most appropriate option and he believes her COPD/AHRF can be managed by the BIPAP ST. [facility] was informed of this and working on the order, if approved can be delivered and an RT can set it up. DAVIDE notes ERICK Jansen reports pt was dismissed from Dr. Anahy Israel's office and referred to Jess. DAVIDE informed [facility] of this. Discharge Plan: home, pending BIPAP ST approval
--- NOTE | 2024-01-15 12:23 | NUR ---
Dishcarge instructions provided. Education about follow up appoinments and changes to medications reviewed with patient and her . Stressed importance of quitting smoking and following up with doctors as scheduled. Pt and verbalized understanding. IV x2 discontinued by student nurse. Pt voided prior to leaving for first time since cathater removal. Pt escorted out via wheelchair.
--- NOTE | 2024-01-15 12:52 | NUR ---
worker's compensation claims examiner informed by [facility] they can arrive within the hour to provide BIPAP. DAVIDE spoke with ERICK Jansen who advised pt was eager to discharge and has left. DAVIDE informed [facility] to deliver to pt's home since she has left the building. Discharge Plan: home
== END 2024-01-15 11:51 | disposition home or self-care (01) | DRG 189 ==
LOC: COL.ER 23:26 → ICU 01-13 01:59
PROVIDERS: Emergency Medicine; Internal Medicine Pulmonary Disease; Nurse Practitioner Family; ADMIT Internal Medicine
DX: J96.22 Acute and chronic respiratory failure with hypercapnia (principal); I21.4 Non-ST elevation (NSTEMI) myocardial infarction; J44.1 Chronic obstructive pulmonary disease with (acute) exacerbation; I50.30 Unspecified diastolic (congestive) heart failure; I95.9 Hypotension, unspecified; T68.XXXA Hypothermia, initial encounter; I27.20 Pulmonary hypertension, unspecified; E11.22 Type 2 diabetes mellitus with diabetic chronic kidney disease; N18.9 Chronic kidney disease, unspecified; E11.65 Type 2 diabetes mellitus with hyperglycemia; Z79.4 Long term (current) use of insulin; E87.5 Hyperkalemia; E66.01 Morbid (severe) obesity due to excess calories; Z68.35 Body mass index [BMI] 35.0-35.9, adult
CPT/HCPCS: J0171; J0692; J0834; J1100; J1650; J1815; J2251; J2704; J3010; J3475; J7060; J7120; Q9967